=== PATIENT | female | born 1960 | race Caucasian/White ===

== ENCOUNTER → 2016-08-25 | Outpatient (CLI) | payer OTHER ==
--- NOTE | 2016-08-25 09:10 | DX ---
Chest, Two Views at 0808 hours History: Recurrent cough, R05. Comparison: None. Findings: Cardiac silhouette is within normal range. Patchy opacity identified in the right middle lo be probably representing pneumonia. Left lung is clear. No pleural effusion or pneumothorax. Bilatera l apical pleural-parenchymal scarring. Impression: 1. Right middle lobe pneumonia. 2. Recommend follow-up until clear.
== END ==
LOC: BMCIMAGING 08:10
PROVIDERS: ATTEND Internal Medicine
DX: J98.4 Other disorders of lung (principal)

== ENCOUNTER → 2017-05-04 | Outpatient (CLI) | payer OTHER | LOC: FIMAGING 17:05 | PROVIDERS: ATTEND Internal Medicine Critical Care Medicine | DX: R91.8 Other nonspecific abnormal finding of lung field (principal); R05 Cough ==

== ENCOUNTER → 2017-05-24 | Outpatient (CLI) | payer OTHER | LOC: FIMAGING 14:15 | PROVIDERS: ATTEND Internal Medicine Critical Care Medicine | DX: A31.0 Pulmonary mycobacterial infection (principal); J47.9 Bronchiectasis, uncomplicated; J21.9 Acute bronchiolitis, unspecified ==

== ENCOUNTER 2017-06-14 13:20 | Day surgery (SDC) | payer OTHER ==
[2017-06-14] MEDS ORDERED: NS 500 ML IV ONE (13:45)
[2017-06-14] MEDS ORDERED: LIDOCAINE 2% JELLY 5 ML TUBE ONE (13:54)
[2017-06-14] MEDS ORDERED: LIDOCAINE 1% 300 MG/30 ML SDV ONE (13:54)
[2017-06-14] MEDS ORDERED: fentaNYL 100 MCG/2 ML INJ ONE (13:58)
[2017-06-14] MEDS ORDERED: MIDAZOLAM 2 MG/2 ML VIAL ONE (13:58)
[2017-06-14] MEDS ORDERED: BENZOCAINE UNIT DOSE SPRAY HURRICAINE MM ONE (14:21)
--- NOTE | 2017-06-14 14:28 | PDGENHP ---
History and Physical - Chief Complaint cough - History of Present Illness Hx of cough, inifltrates c/w MAC History Information - Allergies/Home Medication List Allergies/Adverse Reactions: codeine Allergy (Verified 05/29/17 16:17) Swelling/neck,face,throat erythromycin base Allergy (Verified 05/29/17 16:17) Swelling/neck,face,throat shellfish derived Allergy (Verified 05/29/17 16:17) Vomiting Home Medications: NK [No Known Home Meds] 05/29/17 [Last Taken Unknown] I have personally reviewed and updated: medical history - Past Medical History no pertinent PMH - Surgical History Reports: no pertinent surgical hx - Social History Smoking Status: Never smoked Review of Systems Review of Systems: Physical Exam Physical Exam: Constitutional: no apparent distress Ears, Nose, Mouth, Throat: moist mucous membranes Cardiovascular: regular rate and rhythym Respiratory: no respiratory distress Gastrointestinal: normoactive bowel sounds, no palpable masses Skin: warm, normal color Neurologic: AAOx3 Psychiatric: interacting appropriately Assessment & Plan Assessment: Assessment: Cough. Infiltrates and history c/w MAC Plan: Bronch wiht BAL RML.
[2017-06-14] MEDS ORDERED: fentaNYL 100 MCG/2 ML INJ IVP ONE (14:44)
[2017-06-14] MEDS ORDERED: MIDAZOLAM 10 MG/2 ML VIAL IVP ONE (14:44)
[2017-06-14 15:38] VITALS: BP 93/63; RESP 17; O2SAT 98
== END 2017-06-14 15:34 | disposition home or self-care (01) ==
LOC: FSGY 13:20
PROVIDERS: ATTEND Internal Medicine Critical Care Medicine
PROC: 0BJK8ZZ Inspection of Right Lung, Via Natural or Artificial Opening Endoscopic (ICD-10-PCS; principal; 2017-06-14 14:00)
PROC: 0BJL8ZZ Inspection of Left Lung, Via Natural or Artificial Opening Endoscopic (ICD-10-PCS; principal; 2017-06-14 14:00)
DX: R05 Cough (principal); R91.8 Other nonspecific abnormal finding of lung field
CPT/HCPCS: J2250; J3010

== ENCOUNTER → 2017-08-25 | Outpatient (CLI) | payer OTHER | LOC: BMCIMAGING 12:07 | PROVIDERS: ATTEND Internal Medicine Gastroenterology | DX: K59.00 Constipation, unspecified (principal) ==